=== PATIENT | male | born 1995 | race Caucasian/White ===

== ENCOUNTER 2025-01-17 02:01 | Inpatient (IN) | payer SELFPAY ==
[2025-01-17] VITALS (7 sets, daily range): BP systolic 100–169; BP diastolic 62–85
[~2025-01-17] VITALS: Ht 180.3 cm; Wt 161.0 kg
[2025-01-17 02:35] LABS: BASO % 0.3 % (0.0-1.0); EOS # 0.1 10*3/uL (0.0-0.4); HEMATOCRIT 46.4 % (42.0-52.0); MEAN CELL VOLUME 87.9 fl (80.0-94.0); MEAN CORPUSCULAR HGB CONC 31.9 g/dl (33.0-37.0); MEAN PLATELET VOLUME 8.7 fl (9.6-12.3); MONO # 0.6 10*3/uL (0.1-1.0); MONO % 6.4 % (3.0-9.0); NEUT # 5.1 10*3/uL (2.3-7.9); NEUT % 55.9 % (47.0-73.0); PLATELET COUNT AUTOMATED 246 10*3/uL (130-400); RED BLOOD COUNT 5.28 10*6/uL (4.50-5.90); RED CELL DISTRI WIDTH 14.4 % (0-14.5); WHITE BLOOD COUNT 9.1 10*3/uL (4.8-10.8)
[2025-01-17 02:54] LABS: BUN 24 mg/dl (9-23); CHLORIDE 101 mmol/L (98-107); POTASSIUM 3.5 mmol/L (3.4-5.1)
[2025-01-17 03:10] LABS: ACT PARTIAL THROMBO TIME 28.2 SECONDS (20.0-32.1)
[2025-01-17 03:49] LABS: URINE AMPHETAMINES Negative (1000ng/ml); URINE BARBITURATES Negative (200ng/ml); URINE BENZODIAZEPINES Negative (200ng/ml); URINE CANNABINOIDS (THC) Negative (50ng/ml); URINE COCAINE Negative (300ng/ml); URINE METHADONE Negative (300ng/ml); URINE OPIATES Negative (300ng/ml); URINE PHENCYCLIDINE Negative (25ng/ml)
[2025-01-17] MEDS ORDERED: HEPARIN SODIUM 250 ML IV SCH (05:15)
[2025-01-17] MEDS ORDERED: Acetaminophen/Hydrocodone 5 MG/325 MG TABLET PO PRN (06:45)
[2025-01-17] MEDS ORDERED: ACETAMINOPHEN 325 MG TAB PO PRN (06:45)
[2025-01-17] MEDS ORDERED: BISACODYL 5 MG TAB PO PRN (06:45)
[2025-01-17] MEDS ORDERED: BISACODYL 10 MG SUPP R PRN (06:45)
[2025-01-17] MEDS ORDERED: Ondansetron Hydrochloride 4 MG/2 ML VIAL IV PRN (06:45)
[2025-01-17] MEDS ORDERED: Magnesium Hydroxide 30 ML UDC PO PRN (06:45)
[2025-01-17] MEDS ORDERED: ACETAMINOPHEN 650 MG SUPP R PRN (06:45)
[2025-01-17] MEDS ORDERED: MORPHINE Sulfate 2 MG/ML SYR IV PRN (06:45)
[2025-01-17] MEDS ORDERED: CARVEDILOL 25 MG TAB PO ONE (06:50)
[2025-01-17] MEDS ORDERED: ASPIRIN 325 MG TAB PO ONE (06:50)
[2025-01-17] MEDS ORDERED: ATORVASTATIN CALCIUM 40 MG TABLET PO SCH (06:50)
[2025-01-17] MEDS ORDERED: Albuterol Sulf/Ipratropium 3 ML VIAL NEB PRN (06:50)
[2025-01-17] MEDS ORDERED: DAPAGLIFLOZIN10 MG PO (06:51)
[2025-01-17] MEDS ORDERED: ROSUVASTATIN CA10 MG PO (06:52)
[2025-01-17] MEDS ORDERED: ZESTRIL20 MG PO (06:52)
[2025-01-17] MEDS ORDERED: PREDNISONE20 M1 PO (06:52)
[2025-01-17] MEDS ORDERED: Lasix80 MG PO (06:53)
[2025-01-17] MEDS ORDERED: KLOR-CON M2020 ME1 PO (06:53)
[2025-01-17] MEDS ORDERED: VENT7GM INH (06:54)
[2025-01-17 08:06] LABS: CHOLESTEROL 113 mg/dL (<200); FREE T4 1.26 ng/dl (0.89-1.76); TRIGLYCERIDES 374 mg/dl (<150)
[2025-01-17 08:29] LABS: VITAMIN D, 25-HYDROXY 30.2 ng/mL (30-100)
[2025-01-17] MEDS ORDERED: PENICILLIN250 MG PO (08:40)
[2025-01-17 08:52] LABS: LDL CHOLESTEROL < 9 mg/dL (9-159)
[2025-01-17] MEDS ORDERED: PERFLUTREN PROTEIN-A MICROSPHR 3 ML VIAL IV ONE (13:27)
[2025-01-17] MEDS ORDERED: Albuterol Sulfate 2.5 MG/3 ML VIAL NEB PRN (13:40)
[2025-01-17] MEDS ORDERED: predniSONE 20 MG TAB PO SCH (17:00)
[2025-01-17] MEDS ORDERED: FUROSEMIDE 40 MG TAB PO SCH (18:00)
[2025-01-17] MEDS ORDERED: CARVEDILOL 3.125 MG TAB PO SCH (22:00)
[2025-01-18] VITALS: BP 151/82
[2025-01-18 08:00] VITALS: BP 151/83
[2025-01-18] MEDS ORDERED: POTASSIUM CHLORIDE 20 MEQ TAB PO SCH (10:00)
[2025-01-18] MEDS ORDERED: LISINOPRIL 20 MG TAB PO SCH (10:00)
[2025-01-18] MEDS ORDERED: SPIRONOLACTONE 25 MG TAB PO SCH (10:00)
[2025-01-18 12:00] VITALS: BP 138/73
[2025-01-18] MEDS ORDERED: CARVEDILOL3.125 MG PO (13:13)
[2025-01-18] MEDS ORDERED: ALDACTONE25 MG PO (13:13)
[2025-01-18] MEDS ORDERED: ENTRESTO 24 MG1 EACH PO (13:13)
[2025-01-19] MEDS ORDERED: Enoxaparin Sodium 40 MG/0.4 ML SYR SC SCH (10:00)
== END 2025-01-18 15:44 | disposition home or self-care (01) | DRG 280 ==
LOC: ED 02:01 → 4E 06:13 → EDHOLD 06:13 → 4E 07:29
PROVIDERS: Internal Medicine; ADMIT Internal Medicine; ATTEND Internal Medicine
DX: I21.4 Non-ST elevation (NSTEMI) myocardial infarction (principal); I50.23 Acute on chronic systolic (congestive) heart failure; Z68.42 Body mass index [BMI] 45.0-49.9, adult; I20.0 Unstable angina; I11.0 Hypertensive heart disease with heart failure; E11.65 Type 2 diabetes mellitus with hyperglycemia; F17.210 Nicotine dependence, cigarettes, uncomplicated; I25.5 Ischemic cardiomyopathy; E66.9 Obesity, unspecified; Z90.49 Acquired absence of other specified parts of digestive tract; Z84.89 Family history of other specified conditions